=== PATIENT | female | born 1955 | race Caucasian/White ===

== ENCOUNTER 2018-07-28 13:13 | Outpatient (CLI) | payer BC ==
--- NOTE | 2018-07-28 15:09 | BD ---
DEXA BONE DENSITOMETRY: (Dual energy X-ray Absorptiometry) 07/28/2018 HISTORY: A 63-year-old white female for postmenopausal, age-related, osteoporosis screening examination. Heig ht 68 inches. Weight 180 pounds. Age of menopause 45 years. COMPARISON: None available. FINDINGS: The bone mineral density (BMD) is given in grams per square centimeter (g/cm2): LUMBAR SPINE: BMD(g/cm2) T-score Z-score L1: 0.863 -1.2 0.2 L2: 0.840 -1.7 -0.2 L3: 0.860 -2.0 -0.5 L4: 0.754 -2.8 -1.2 Total: 0.827 -2.0 -0.5 HIP: Femoral neck: 0.689 -1.4 -0.1 Total: 0.878 -0.5 0.5 FRAX WHO Fracture Risk Assessment Tool: 10 Year Fracture Risk * Major osteoporotic fracture: 14% Hip fracture: 1.1% Reported Risk Factors: [place](), Neck BMD=0.689, BMI=27.4, and previous fracture * Fracture probability is calculated for an untreated patient. Fracture probability may be lower if the patient has received treatment. IMPRESSION: 1) The mean bone mineral density of the lumbar spine is osteopenic. Fracture risk is increased. 2) The bone mineral density of the femoral neck is osteopenic. Fracture risk is increased. POOJA Blanco POS: MAILE
== END 2018-07-28 13:14 | disposition home or self-care (01) ==
LOC: BICMAMMO 13:13
PROVIDERS: ATTEND Internal Medicine
DX: Z12.31 Encounter for screening mammogram for malignant neoplasm of breast (principal); M85.88 Other specified disorders of bone density and structure, other site; Z80.3 Family history of malignant neoplasm of breast
CPT/HCPCS: 77063; 77067; 77080

== ENCOUNTER 2020-08-11 08:34 | Outpatient (CLI) | payer BC ==
--- NOTE | 2020-08-11 09:29 | MMO ---
Bilateral MAMMO Bilat Screen [facility]. CLINICAL HISTORY: Patient is 65 years old and is seen for screening. The patient has the following family history of breast cancer: maternal grandmother, malignant (generic). The patient has no personal history of cancer. VIEWS: The views performed were: bilateral craniocaudal with tomosynthesis and bilateral mediolateral oblique with tomosynthesis. FILMS COMPARED: The present examination has been compared to prior imaging studies performed at [facility] on 07/11/2015, 07/22/2016, 07/30/2016 and 07/28/2018. This study has been interpreted with the assistance of computer-aided detection. MAMMOGRAM FINDINGS: There are scattered fibroglandular densities. There are no suspicious masses, suspicious calcifications, or new areas of architectural distortion. IMPRESSION: THERE IS NO MAMMOGRAPHIC EVIDENCE OF MALIGNANCY. A ROUTINE FOLLOW-UP MAMMOGRAM IN 1 YEAR IS RECOMMENDED. THE RESULTS OF THIS EXAM WERE SENT TO THE PATIENT. ACR BI-RADS Category 1 - Negative MAMMOGRAPHY NOTE: 1. A negative mammogram report should not delay a biopsy if a dominant of clinically suspicious mass is present. 2. Approximately 10% to 15% of breast cancers are not detected by mammography. 3. Adenosis and dense breasts may obscure an underlying neoplasm. Reported by: KAYLEN PEREZ MD Electonically Signed: [id number]
== END 2020-08-11 08:35 | disposition home or self-care (01) ==
LOC: BICMAMMO 08:34
PROVIDERS: ATTEND Internal Medicine
DX: Z12.31 Encounter for screening mammogram for malignant neoplasm of breast (principal); Z80.3 Family history of malignant neoplasm of breast
CPT/HCPCS: 77063; 77067

== ENCOUNTER 2020-12-11 12:37 | Emergency (ER) | payer OTHER, BC ==
[~2020-12-11 12:37] MED LIST: Iopamidol-370 76% 500 ML 1 ML ONE
[2020-12-11] MEDS ORDERED: Fentanyl 100 MCG/2 ML VIAL ONE (12:42)
[2020-12-11] MEDS ORDERED: Boostrix 0.5 ML (Tdap) VIAL ONE (12:42)
[2020-12-11] MEDS ORDERED: Ondansetron PF 4 MG/2 ML Vial ONE (12:42)
[2020-12-11 13:22] LABS: #Lymphocytes 2.8 thou/uL (1.20-3.40); #Monocytes 0.4 thou/uL (0.11-0.59); #Neutrophils 3.1 thou/uL (1.40-6.50); %Basophils 0.7 % (0.0-1.0); %Eosinophils 0.4 % (0.0-10.0); %Lymphocytes 44.2 % (21.0-51.0); %Monocytes 6.5 % (0.0-10.0); %Neutrophils 48.1 % (42.0-75.0); Hemoglobin 12.8 g/dL (12.0-16.0); Mean Corpuscular HGB CONC 32.9 g/dL (32.0-36.0); Mean Corpuscular Hemoglobin 28.3 pg (27.0-31.0); Mean Corpuscular Volume 86.2 fL (78.0-98.0); Platelet Count 241 thou/uL (130-400); RBC Distribution Width 14.5 % (11.5-14.5); Red Blood Cell (RBC) Count 4.52 mill/uL (4.20-5.40); White Blood Cell (WBC) Count 6.4 thou/uL (4.8-10.8)
[2020-12-11 13:30] LABS: PTT 24.5 sec (22.9-36.1); Prothrombin Time 13.6 sec (12.0-14.7)
[2020-12-11 13:46] LABS: ALT (SGPT) 20 U/L (8-55); AST (SGOT) 21 U/L (5-34); Albumin 3.5 g/dL (3.4-4.8); Alkaline Phosphatase 47 U/L (40-110); Anion Gap 12 mmol/L (10-20); BUN (Urea Nitrogen) 19 mg/dL (9.8-20.1); Bilirubin, Total 0.4 mg/dL (0.2-1.2); Calc. Creatinine Clearance 0 mL/min (70-130); Calcium 7.9 mg/dL (7.8-10.44); Carbon Dioxide 21 mmol/L (23-31); Chloride 106 mmol/L (98-107); Globulin 2.2 g/dL (2.4-3.5); Glucose 120 mg/dL (80-115); Potassium 3.9 mmol/L (3.5-5.1); Protein, Total 5.7 g/dL (5.8-8.1); Sodium 135 mmol/L (136-145)
[2020-12-11] MEDS ORDERED: Ondansetron ODT 4 MG TAB ONE (14:38)
== END 2020-12-11 14:30 | disposition home or self-care (01) ==
LOC: ERS 12:37
DX: S06.0X9A Concussion with loss of consciousness of unspecified duration, initial encounter (principal); S52.502A Unspecified fracture of the lower end of left radius, initial encounter for closed fracture; S42.112A Displaced fracture of body of scapula, left shoulder, initial encounter for closed fracture; D18.09 Hemangioma of other sites; V89.2XXA Person injured in unspecified motor-vehicle accident, traffic, initial encounter
CPT/HCPCS: 25600; 36415; 70450; 71260; 72125; 74177; 80053; 85025; 85610; 85730; 90471; 90715; 96374; 96375; G0390; J2405; J3010; Q0162; Q9967

== ENCOUNTER 2020-12-20 10:21 | Day surgery (SDC) | payer OTHER, SELFPAY ==
[2020-12-19 12:16] VITALS: BMI 27.0
[2020-12-20] MEDS ORDERED: Bupivacaine 0.25% HCL 30 ML VIAL ONE (10:57)
[2020-12-20] MEDS ORDERED: Lidocaine 1% (PF) 30 ML VIAL ONE (10:57)
[2020-12-20] MEDS ORDERED: Midazolam HCl 2 mg/2 ml Vial ONE (11:42)
[2020-12-20] MEDS ORDERED: Fentanyl 100 MCG/2 ML VIAL ONE ×2 (11:42→12:06)
[2020-12-20] MEDS ORDERED: Scopolamine 1.5 mg/72 hour Patch ONE (11:55)
[2020-12-20] MEDS ORDERED: Dexamethasone 20 MG/5 ML VIAL ONE (13:00)
[2020-12-20] MEDS ORDERED: Ondansetron PF 4 MG/2 ML Vial ONE (13:00)
[2020-12-20] MEDS ORDERED: ePHEDrine Sulfate 50 MG/10 ML VIAL ONE (13:00)
[2020-12-20] MEDS ORDERED: PROPOFOL 200 MG/20 ML VIAL ONE (13:00)
[2020-12-20] MEDS ORDERED: PHENYLEPHRINE-NS 100 MCG/ML 10 ML SYRINGE ONE (13:00)
[2020-12-20] MEDS ORDERED: Bupivacaine HCl 0.5%/Epinephrine 1:200,000/PF 30 ml Vial ONE (13:00)
== END 2020-12-20 16:45 | disposition home or self-care (01) ==
LOC: SDC 10:21
PROVIDERS: ATTEND Surgery Surgery of the Hand
PROC: 3E0T3BZ Introduction of Anesthetic Agent into Peripheral Nerves and Plexi, Percutaneous Approach (ICD-10-PCS; principal; 2020-12-20)
PROC: 0PSJ04Z Reposition Left Radius with Internal Fixation Device, Open Approach (ICD-10-PCS; principal; 2020-12-20)
DX: S52.572A Other intraarticular fracture of lower end of left radius, initial encounter for closed fracture (principal); G89.18 Other acute postprocedural pain; S52.602A Unspecified fracture of lower end of left ulna, initial encounter for closed fracture; S42.035A Nondisplaced fracture of lateral end of left clavicle, initial encounter for closed fracture; S42.192A Fracture of other part of scapula, left shoulder, initial encounter for closed fracture; Z91.018 Allergy to other foods; V49.40XA Driver injured in collision with unspecified motor vehicles in traffic accident, initial encounter
CPT/HCPCS: 76000; 93005; 93010; C1713; J0690; J1100; J2001; J2250; J2405; J2704; J3010; S0020

== ENCOUNTER 2022-01-16 12:27 | Outpatient (CLI) | payer BC | END 2022-01-16 12:28 | disposition home or self-care (01) | LOC: BICMAMMO 12:27 | PROVIDERS: ATTEND Internal Medicine | DX: Z12.31 Encounter for screening mammogram for malignant neoplasm of breast (principal); Z80.3 Family history of malignant neoplasm of breast | CPT/HCPCS: 77063; 77067 ==

== ENCOUNTER 2023-03-14 12:51 | Outpatient (CLI) | payer MEDICARE | END 2023-03-14 12:52 | disposition home or self-care (01) | LOC: BICMAMMO 12:51 | PROVIDERS: ATTEND Internal Medicine | DX: Z12.31 Encounter for screening mammogram for malignant neoplasm of breast (principal); Z13.820 Encounter for screening for osteoporosis; M81.0 Age-related osteoporosis without current pathological fracture; M85.851 Other specified disorders of bone density and structure, right thigh; M85.852 Other specified disorders of bone density and structure, left thigh; Z80.3 Family history of malignant neoplasm of breast | CPT/HCPCS: 77063; 77067; 77080 ==